=== PATIENT | female | born 2000 | race Hispanic/Latino ===

== ENCOUNTER 2019-05-06 12:16 | Emergency (ER) | payer OTHER ==
[2019-05-06 13:13] LABS: Urine Blood 3+ (NEG); Urine Glucose NEGATIVE (NEG); Urine Protein NEGATIVE (NEG)
--- NOTE | 2019-05-06 13:13 | EDPHYS ---
Physician Documentation [facility] Name: Gill Guillen Age: 18 yrs Sex: Female : 2000 Arrival Date: 05/06/2019 Time: 12:20 Bed 23 Private MD: ED Physician Geovany Beasley HPI: 05/06 12:41 This 18 yrs old Female presents to ER via Ambulatory with complaints of Cold kb Symptoms. 12:41 The patient or guardian reports cough, that is intermittent, described as mild, with no kb sputum, flu symptoms, low-grade fever, myalgias. Onset: The symptoms/episode began/occurred 4 week(s) ago. Severity of symptoms: At their worst the symptoms were mild, moderate, in the emergency department the symptoms are unchanged. Modifying factors: The symptoms are alleviated by nothing, the symptoms are aggravated by nothing. Associated signs and symptoms: Pertinent positives: fever, rhinorrhea. The patient has not experienced similar symptoms in the past. The patient has not recently seen a physician. Pt reports congestion, slight cough, headache, bodyaches, subjective fever for 4 days. Feeling better today, but went to and was told she had to come to the ER for a heart rate of 99. Historical: - Allergies: 12:32 Vantin; ss - Home Meds: 12:32 None [Active]; ss - PMHx: 12:32 None; ss - PSHx: 12:32 None; ss - Immunization history:: Adult Immunizations up to date. - Social history:: Smoking status: Patient/guardian denies using tobacco. - Ebola Screening: : Patient denies exposure to infectious person Patient denies travel to an Ebola-affected area in the 21 days before illness onset. ROS: 12:40 Neck: Negative for injury, pain, and swelling, Cardiovascular: Negative for chest pain, kb palpitations, and edema, Abdomen/GI: Negative for abdominal pain, nausea, vomiting, diarrhea, and constipation, Back: Negative for injury and pain, : Negative for injury, bleeding, discharge, and swelling, MS/Extremity: Negative for injury and deformity, Skin: Negative for injury, rash, and discoloration. 12:40 Constitutional: Positive for body aches, chills, fatigue, fever, malaise. 12:40 ENT: Positive for rhinorrhea, sinus congestion. 12:40 Respiratory: Positive for cough, Negative for dyspnea on exertion, hemoptysis, orthopnea, pleurisy, shortness of breath, sputum production, wheezing. 12:40 Neuro: Positive for headache. Exam: 12:40 Constitutional: This is a well developed, well nourished patient who is awake, alert, kb and in no acute distress. Head/Face: Normocephalic, atraumatic. ENT: Nares patent. No nasal discharge, no septal abnormalities noted. Tympanic membranes are normal and external auditory canals are clear. Oropharynx with no redness, swelling, or masses, exudates, or evidence of obstruction, uvula midline. Mucous membranes moist. Neck: Trachea midline, no thyromegaly or masses palpated, and no cervical lymphadenopathy. Supple, full range of motion without nuchal rigidity, or vertebral point tenderness. No Meningismus. Chest/axilla: Normal chest wall appearance and motion. Nontender with no deformity. No lesions are appreciated. Cardiovascular: Regular rate and rhythm with a normal S1 and S2. No gallops, murmurs, or rubs. Normal PMI, no JVD. No pulse deficits. Respiratory: Lungs have equal breath sounds bilaterally, clear to auscultation and percussion. No rales, rhonchi or wheezes noted. No increased work of breathing, no retractions or nasal flaring. Abdomen/GI: Soft, non-tender, with normal bowel sounds. No distension or tympany. No guarding or rebound. No evidence of tenderness throughout. Skin: Warm, dry with normal turgor. Normal color with no rashes, no lesions, and no evidence of cellulitis. MS/ Extremity: Pulses equal, no cyanosis. Neurovascular intact. Full, normal range of motion. Neuro: Awake and alert, GCS 15, oriented to person, place, time, and situation. Cranial nerves II-XII grossly intact. Motor strength 5/5 in all extremities. Sensory grossly intact. Cerebellar exam normal. Normal gait. Vital Signs: 12:32 BP 125 / 91; Pulse 110; Resp 16; Temp 98.3(O); Pulse Ox 99% on R/A; Weight 52.16 kg; Height 5 ft. 3 in. (160.02 cm); Pain 0/10; 12:32 Body Mass Index 20.37 (52.16 kg, 160.02 cm) ss MDM: 12:21 Patient medically screened. kb 12:40 Data reviewed: vital signs, nurses notes. Data interpreted: Pulse oximetry: on room air kb is 99 %. Interpretation: normal. 12:53 Counseling: I had a detailed discussion with the patient and/or guardian regarding: the kb historical points, exam findings, and any diagnostic results supporting the discharge/admit diagnosis, lab results, the need for outpatient follow up, a family practitioner, to return to the emergency department if symptoms worsen or persist or if there are any questions or concerns that arise at home. 05/06 12:26 Order name: Flu; Complete Time: 12:50 kb 05/06 12:26 Order name: Strep; Complete Time: 12:46 kb 05/06 12:26 Order name: EKG; Complete Time: 12:26 kb 05/06 12:40 Order name: Urine Dipstick--Ancillary (enter results); Complete Time: 13:15 ms 05/06 12:40 Order name: Urine --Ancillary (enter results); Complete Time: 13:15 ms 05/06 12:49 Order name: Throat Culture EDMS 05/06 12:26 Order name: EKG - Nurse/Tech; Complete Time: 12:51 kb 05/06 12:26 Order name: Urine Dipstick-Ancillary (obtain specimen); Complete Time: 12:40 kb Administered Medications: No medications were administered Point of Care Testing: Urine : 12:30 hCG Reading: Negative; Control Reading: Positive; jp3 Disposition: 13:13 Co-signature as Attending Physician, Geovany Beasley MD Bedside ECHO performed by Dr. lexi Beasley, no effusion, good contractions and size.. Disposition: 05/06/19 13:12 Discharged to Home. Impression: Influenza due to certain identified influenza viruses. - Condition is Stable. - Discharge Instructions: Influenza, Adult, [id number]. - Prescriptions for Tamiflu 75 mg Oral Capsule - take 1 capsule by ORAL route every 12 hours for 5 days; 10 capsule. - Medication Reconciliation Form, Thank You Letter, Antibiotic Education, Prescription Opioid Use, School release form, Work release form, Family Work Release form. - Follow up: Emergency Department; When: As needed; Reason: Worsening of condition. Follow up: Private Physician; When: 2 - 3 days; Reason: Recheck today's complaints, Continuance of care, Re-evaluation by your physician. Signatures: Dispatcher [employer] EDMargarita Cooney, PLANT QUALITY MANAGER-C PLANT QUALITY MANAGER-Héctor Victor RN RN Geovany Le MD MD rn Smirch, Shelby, RN RN ss Corrections: (The following items were deleted from the chart) 13:25 13:12 05/06/2019 13:12 Discharged to Home. Impression: Influenza due to certain sg identified influenza viruses. Condition is Stable. Discharge Instructions: Influenza, Adult, [id number]. Forms are Medication Reconciliation Form, Thank You Letter, Antibiotic Education, Prescription Opioid Use. Follow up: Emergency Department; When: As needed; Reason: Worsening of condition. Follow up: Private Physician; When: 2 - 3 days; Reason: Recheck today's complaints, Continuance of care, Re-evaluation by your physician. kb
--- NOTE | 2019-05-06 13:13 | ER ---
Nurse's Notes [facility] Name: Gill Guillen Age: 18 yrs Sex: Female : 2000 Arrival Date: 05/06/2019 Time: 12:20 Bed 23 Private MD: Diagnosis: Influenza due to certain identified influenza viruses Presentation: 05/06 12:28 Presenting complaint: Patient states: Sent by Urgent care for high heart rate (99 bpm) ss without fever. Pt reports since Wednesday she has had body aches, headache, sinus pain, watery eyes and a stuffy nose. Mother states patient had a fever Wednesday, but has not had another one since then. Pt states, "I feel better now, but still want to get checked out.". Transition of care: patient was not received from another setting of care. Onset of symptoms was May 03, 2019. Risk Assessment: Do you want to hurt yourself or someone else? Patient reports no desire to harm self or others. Initial Sepsis Screen: Does the patient meet any 2 criteria? HR > 90 bpm. Does the patient have a suspected source of infection? No. Patient's initial sepsis screen is negative. Care prior to arrival: None. 12:28 Method Of Arrival: Ambulatory ss 12:28 Acuity: TATI 3 ss Historical: - Allergies: 12:32 Vantin; ss - Home Meds: 12:32 None [Active]; ss - PMHx: 12:32 None; ss - PSHx: 12:32 None; ss - Immunization history:: Adult Immunizations up to date. - Social history:: Smoking status: Patient/guardian denies using tobacco. - Ebola Screening: : Patient denies exposure to infectious person Patient denies travel to an Ebola-affected area in the 21 days before illness onset. Screenin:21 Abuse screen: Denies threats or abuse. Denies injuries from another. Nutritional ss screening: No deficits noted. Tuberculosis screening: Never had TB. Fall Risk None identified. Assessment: 12:21 General: Appears in no apparent distress. comfortable, well groomed, well developed, ss well nourished, Behavior is calm, cooperative, appropriate for age, Reports subjective fever 3 days ago. Pt reports today she is feeling much better, but still would like to get checked out. Pain: Denies pain. Neuro: Level of Consciousness is awake, alert, obeys commands, Oriented to person, place, time, situation. Cardiovascular: Capillary refill < 3 seconds is brisk in bilateral fingers. Cardiovascular: Rhythm is sinus tachycardia. Respiratory: Airway is patent Respiratory effort is even, unlabored, Respiratory pattern is regular, symmetrical, Breath sounds are clear bilaterally. Denies shortness of breath pain with respiration, pain with cough, pain with movement. GI: Patient currently denies diarrhea, nausea, vomiting. : No signs and/or symptoms were reported regarding the genitourinary system. Denies burning with urination, urinary frequency. EENT: Nares are clear Oral mucosa is moist. Reports sinus pressure/ congestion and watery eyes x 3 days. Derm: Skin is pink, warm \\T\\ dry. normal. Musculoskeletal: Circulation, motion, and sensation intact. Range of motion: intact in all extremities, Swelling absent. Vital Signs: 12:32 BP 125 / 91; Pulse 110; Resp 16; Temp 98.3(O); Pulse Ox 99% on R/A; Weight 52.16 kg; ss Height 5 ft. 3 in. (160.02 cm); Pain 0/10; 12:32 Body Mass Index 20.37 (52.16 kg, 160.02 cm) ss ED Course: 12:20 Patient arrived in ED. as 12:20 Margarita Perez F[facility]-C [facility] kb 12:20 Geovany Beasley MD is Attending Physician. kb 12:25 Patient maintains SpO2 saturation greater than 95% on room air. jp3 12:25 Flu and/or RSV swab sent to lab. Strep swab sent to lab. jp3 12:26 Héctor Atkins, RN is Primary Nurse. sg 12:30 Urine collected: clean catch specimen, clear, shannon colored. jp3 12:31 Triage completed. ss 12:32 Arm band placed on right wrist. ss 12:40 Bed in low position. Call light in reach. Side rails up X 1. Adult w/ patient. Verbal jp3 reassurance given. Pulse ox on. NIBP on. 12:51 EKG done, by ED staff, reviewed by Margarita SIFUENTES. jp3 13:25 No provider procedures requiring assistance completed. Patient did not have IV access ss during this emergency room visit. Administered Medications: No medications were administered Point of Care Testing: Urine : 12:30 hCG Reading: Negative; Control Reading: Positive; jp3 Outcome: 13:12 Discharge ordered by . terri 13:25 Patient left the ED. sg 13:25 Discharged to home ambulatory, with family. ss 13:25 Condition: good 13:25 Discharge instructions given to patient, family, Instructed on discharge instructions, follow up and referral plans. medication usage, Demonstrated understanding of instructions, follow-up care, medications, Prescriptions given X 1. Signatures: Margarita Perez FNP-C FNP-Héctor Victor, RN RN Galina Lock Shelby, RN RN ss Josiah Andrews jp3 Corrections: (The following items were deleted from the chart) 13:07 12:28 Presenting complaint: Patient states: Sent by Urgent care for high heart rate (90 ss bpm) without fever. Pt reports since Wednesday she has had body aches, headache, sinus pain, watery eyes and a stuffy nose. Mother states patient had a fever Wednes, but has not had another one since then. Pt states, "I feel better now, but still want to get checked out." ss
[2019-05-06 13:38] VITALS: BP 125/91; TEMP 98.3; O2SAT 99
--- NOTE | 2019-05-07 06:35 | EKG ---
Test Date: 2019-05-06 Test Time: 12:49:25 Assistant Production Manager: SONIA MEASUREMENT RESULTS: Intervals: Rate: 101 CA: 164 QRSD: 90 QT: 336 QTc: 435 [place]: P: 59 CA: 164 QRS: 28 T: 45 INTERPRETIVE STATEMENTS: Sinus tachycardia Possible Left atrial enlargement Low voltage QRS Incomplete right bundle branch block Abnormal ECG Compared to ECG 12/12/2013 15:23:25 Low QRS voltage now present Sinus rhythm no longer present Electronically Signed On 05-07-19 06:34:57 OCCUPATIONAL HEALTH TECHNICIAN by Clifford Morgan
== END 2019-05-06 13:25 | disposition home or self-care (01) ==
LOC: ER 12:16
DX: J10.1 Influenza due to other identified influenza virus with other respiratory manifestations (principal); Z88.8 Allergy status to other drugs, medicaments and biological substances
CPT/HCPCS: 81003; 81025; 87070; 87081; 87804; 93005; 99285